=== PATIENT | male | born 2000 | race Hispanic/Latino ===

== ENCOUNTER 2019-12-15 14:36 | Emergency (ER) | payer OTHER ==
[2019-12-15 16:01] LABS: RAPID GROUP A STREP POSITIVE (NEGATIVE)
== END 2019-12-15 16:27 | disposition home or self-care (01) ==
LOC: EDH 14:36
DX: J02.0 Streptococcal pharyngitis (principal); R11.2 Nausea with vomiting, unspecified; Z72.0 Tobacco use
CPT/HCPCS: 87804; 87880

== ENCOUNTER 2020-03-14 00:28 | Emergency (ER) | payer SELFPAY ==
[2020-03-14] MEDS ORDERED: KETOROLAC TROMETHAMINE 60 MG/2 ML VIAL ONE (01:25)
[2020-03-14] MEDS ORDERED: ONDANSETRON ODT 4 MG TAB ONE (01:25)
[2020-03-14 01:37] LABS: RAPID GROUP A STREP POSITIVE (NEGATIVE)
[2020-03-14] MEDS ORDERED: AMOXICILLIN 500 MG CAPSULE PO ONE (01:51)
== END 2020-03-14 02:30 | disposition home or self-care (01) ==
LOC: EDH 00:28
DX: J02.0 Streptococcal pharyngitis (principal); R11.2 Nausea with vomiting, unspecified; R51 Headache; Z72.0 Tobacco use
CPT/HCPCS: 71046; 87804 ×2; 87880; 96372; 99284; J1885